=== PATIENT | female | born 2000 | race Two or more races ===

== ENCOUNTER 2019-07-10 14:38 | Emergency (ER) | payer BC ==
[2019-07-10] MEDS ORDERED: NS 0.9% 1000 ML** 1,000 ML IV ONE (15:28)
--- NOTE | 2019-07-10 15:56 | ED ---
Syncope/Near Syncope - HPI Summary HPI Summary: Patient complains of episode of syncope while in class. Witnessed by Professor , states patient was out about 1 minute with eyes open. Patient denies any injury, stating she just slumped in her chair. Patient denies postictal phase. Knew where she was the minute she opened her eyes. Patient states he regularly does not eat much or drink a lot of water. Denies prior history of syncope, seizures, symptoms of illness. Medical history is asthma. - History Of Current Complaint Chief Complaint: EDSyncope Time Seen by Provider: 07/10/19 15:25 Hx Obtained From: Patient Onset/Duration: Sudden Onset, Lasting Minutes Timing: Seconds Context: Witnessed Activity At Onset: At Rest Associated Head Trauma: No Aggravating Factor(s): Nothing Alleviating Factor(s): Spontaneous Resolution Associated Signs And Symptoms: Negative - Allergies/Home Medications Allergies/Adverse Reactions: Allergies Allergy/AdvReac Type Severity Reaction Status Date / Time No Known Allergies Allergy Verified 07/10/19 14:46 PMH/Surg Hx/FS Hx/Imm Hx Endocrine/Hematology History: Denies: Hx Anticoagulant Therapy Cardiovascular History: Denies: Hx Pacemaker/ICD History: Denies: Hx Dialysis Sensory History: Denies: Hx Eye Prosthesis Opthamlomology History: Denies: Hx Legally Blind EENT History: Denies: Hx Deafness Neurological History: Denies: Hx Dementia Infectious Disease History: No Infectious Disease History: Denies: Traveled Outside the [place] in Last 30 Days - Family History Known Family History: Positive: Non-Contributory - Social History Alcohol Use: Rare Substance Use Type: Reports: Marijuana Smoking Status (MU): Never Smoked Tobacco Review of Systems Constitutional: Negative Eyes: Negative ENT: Negative Cardiovascular: Negative Respiratory: Negative Gastrointestinal: Negative Genitourinary: Negative Musculoskeletal: Negative Skin: Negative Positive: Syncope Psychological: Normal All Other Systems Reviewed And Are Negative: Yes Physical Exam Triage Information Reviewed: Yes Vital Signs On Initial Exam: Initial Vitals Temp Pulse Resp BP Pulse Ox 98.6 F 75 16 122/96 99 07/10/19 14:39 07/10/19 14:39 07/10/19 14:39 07/10/19 14:39 07/10/19 14:39 Vital Signs Reviewed: Yes Appearance: Positive: Well-Appearing Skin: Positive: Warm Head/Face: Positive: Normal Head/Face Inspection Eyes: Positive: Normal Neck: Positive: Supple Respiratory/Lung Sounds: Positive: Clear to Auscultation Cardiovascular: Positive: Normal Abdomen Description: Positive: Nontender Musculoskeletal: Positive: Normal Neurological: Positive: Normal Psychiatric: Positive: Normal AVPU Assessment: Alert - Kal Coma Scale Best Eye Response: 4 - Spontaneous Best Motor Response: 6 - Obeys Commands Best Verbal Response: 5 - Oriented Coma Scale Total: 15 Procedures - Sedation Patient Received Moderate/Deep Sedation with Procedure: No Diagnostics - Vital Signs Vital Signs Temp Pulse Resp BP Pulse Ox 07/10/19 14:39 98.6 F 75 16 122/96 99 - Laboratory Result Diagrams: 07/10/19 16:01 07/10/19 16:01 Lab Statement: Any lab studies that have been ordered have been reviewed, and results considered in the medical decision making process. Course/Dx Course Of Treatment: Patient complains of episode of syncope while in class. Witnessed by Professor, states patient was out about 1 minute with eyes open. Patient denies any injury, stating she just slumped in her chair. Patient denies postictal phase. Knew where she was the minute she opened her eyes. Patient states he regularly does not eat much or drink a lot of water. Denies prior history of syncope, seizures, symptoms of illness. Medical history is asthma. Vital signs within normal limits. Labs unremarkable.. Positive for nitrates. EKG sinus rhythm, rate of 61, normal P axis. - Diagnoses Provider Diagnoses: Syncope, UTI (urinary tract infection) Discharge ED - Sign-Out/Discharge Documenting (check all that apply): Patient Departure - Discharge Plan Condition: Stable Disposition: HOME Prescriptions: Cephalexin CAP* [Keflex CAP*] 500 mg PO QID 7 Days #28 cap Patient Education Materials: Urinary Tract Infection in Women (ED), Syncope (ED ) [facility] - Additional Instructions: Take antibiotics as directed. Drink any fluids to maintain hydration. Follow- up with primary care. Return to the ED for any new or worsening symptoms. - Billing Disposition and Condition Condition: STABLE Disposition: Home
[2019-07-10 16:08] LABS: ABS Basophils 0.1 10^3/ul (0-0.2); ABS Eosinophils 0.3 10^3/ul (0-0.6); ABS Lymphocytes 1.8 10^3/ul (1.0-4.8); ABS Monocytes 0.4 10^3/ul (0-0.8); Eosinophil % 3.7 %; Hematocrit 36 % (35-47); Hemoglobin 12.4 g/dL (12.0-16.0); Lymphocyte % 23.8 %; Mean Corpuscular HGB Conc 34 g/dL (31-36); Mean Corpuscular Hemoglobin 30 pg (27-31); Mean Corpuscular Volume 88 fL (80-97); Mean Platelet Volume 8.5 fL (7.4-10.4); Nucleated Red Blood Cells % 0.1; Platelet Count 349 10^3/uL (150-450); Red Blood Count 4.12 10^6 /uL (3.70-4.87); Red Cell Distribution Width 14 % (10-15); White Blood Count 7.6 10^3/uL (3.5-10.8)
[2019-07-10 16:31] LABS: HCG Pregnancy < 0.60 mIU/mL
[2019-07-10 16:38] LABS: TSH (Thyroid Stimulating Horm) 1.01 mcIU/mL (0.34-5.60)
[2019-07-10 16:42] LABS: ALT 39 U/L (7-52); AST 29 U/L (13-39); Albumin 4.3 g/dL (3.2-5.2); Albumin/Globulin Ratio 1.3 (1-3); Alkaline Phosphatase 97 U/L (34-104); Anion Gap 6 mmol/L (2-11); BUN/Creatinine Ratio 14.8 (8-20); Blood Urea Nitrogen 9 mg/dL (6-24); C Reactive Protein 13.15 mg/L (<8.01); CO2 Carbon Dioxide 28 mmol/L (22-32); Calcium 9.6 mg/dL (8.6-10.3); Chloride 103 mmol/L (101-111); EGFR African American 152.9 (>60); EGFR Non-African American 126.4 (>60); Globulin 3.4 g/dL (2-4); Glucose 94 mg/dL (70-100); Sodium 137 mmol/L (135-145); Total Protein 7.7 g/dL (6.4-8.9)
[2019-07-10 17:12] LABS: Urine Appearance Clear; Urine Bilirubin Negative (Negative); Urine Blood Negative (Negative); Urine Color Yellow; Urine Glucose Negative (Negative); Urine Ketones Negative (Negative); Urine Nitrite Positive (Negative); Urine Protein Negative (Negative); Urine Specific Gravity 1.013 (1.010-1.030); Urine Urobilinogen Negative (Negative)
[2019-07-10 17:16] LABS: Urine Bacteria Absent (Absent); Urine Red Blood Cell Absent (Absent); Urine Squamous Epithelial Cell Present (Absent); Urine White Blood Cell Trace(0-5/hpf) (Absent)
[2019-07-10] MEDS ORDERED: Cephalexin CAP* 500 MG PO ONE (17:19)
[2019-07-10 17:35] VITALS: BP 123/59
== END 2019-07-10 17:35 | disposition home or self-care (01) ==
LOC: ED 14:38
DX: R55 Syncope and collapse (principal); N39.0 Urinary tract infection, site not specified; I49.9 Cardiac arrhythmia, unspecified
CPT/HCPCS: 36415; 80053; 81003; 81015; 84443; 84702; 85025; 86140; 87086; 93005; 96360; 96361; 99283; A9270-GY